=== PATIENT | male | born 1935 | race Caucasian/White ===

== ENCOUNTER 2019-12-18 18:46 | Inpatient (IN) | payer MEDICARE, BC ==
--- NOTE | 2019-12-18 19:14 | ED ---
Skin/Abscess/FB HPI <Josiah Valdez - Last Filed: 12/18/19 21:05> - General Source: patient, EMS, RN notes reviewed Mode of arrival: EMS Limitations: no limitations - History of Present Illness MD complaint: other <Jeffery Hall - Last Filed: 12/18/19 21:10> - General Chief complaint: Skin/Abscess/Foreign Body Stated complaint: Dog bite Time Seen by Provider: 12/18/19 18:46 - History of Present Illness Initial comments: This 84-year-old male who is on blood thinners at this time states she was bit by a family had just prior to arrival he was bit on the right hand to include the right thumb and index finger. He also is been on the right calf proximal th ird posterior lateral aspect. He believes he is up-to-date with tetanus shots he has no loss of function to his upper or lower extremities he was brought in by EMS. He is not ALLERGIC to any antibiotics. He wasn't exactly sure which blood thinner he is on. (Jeffery Hall) - Related Data Allergies Allergy/AdvReac Type Severity Reaction Status Date / Time No Known Allergies Allergy Verified 12/18/19 18:54 Review of Systems ROS Other: All systems not noted in ROS Statement are negative. <Josiah Valdez - Last Filed: 12/18/19 21:05> ROS Other: All systems not noted in ROS Statement are negative. <Jeffery Hall - Last Filed: 12/18/19 21:10> ROS Statement: Those systems with pertinent positive or pertinent negative responses have been documented in the HPI. Past Medical History Past Medical History: Atrial Fibrillation, Diabetes Mellitus History of Any Multi-Drug Resistant Organisms: None Reported Past Surgical History: Cholecystectomy, Coronary Bypass/CABG Past Psychological History: No Psychological Hx Reported Smoking Status: Never smoker Past Alcohol Use History: None Reported Past Drug Use History: None Reported <Jeffery Hall - Last Filed: 12/18/19 21:10> General Exam Limitations: no limitations General appearance: alert, anxious Head exam: Present: atraumatic, normocephalic, normal inspection Eye exam: Present: normal appearance, PERRL, EOMI. Absent: scleral icterus, conjunctival injection, periorbital swelling ENT exam: Present: normal exam, mucous membranes moist Neck exam: Present: normal inspection. Absent: tenderness, meningismus, lymphadenopathy Respiratory exam: Present: normal lung sounds bilaterally. Absent: respiratory distress, wheezes, rales, rhonchi, stridor Cardiovascular Exam: Present: bradycardia, irregular rhythm. Absent: systolic murmur, diastolic murmur, rubs, gallop, clicks GI/Abdominal exam: Present: soft, normal bowel sounds. Absent: distended, tenderness, guarding, rebound, rigid Extremities exam: Present: full ROM, tenderness, normal capillary refill, other (Evidence of multiple dog bites over the right hand proximal right thumb and over the proximal index finger and MCP joint. There is edema and some ecchymosis seen over the second MCP joint Lower extremity demonstrates a another bite approximately 5 cm x 7.5 cm with a portion of tissue missing appro ximately 5 cm x 5 cm ). Absent: pedal edema, joint swelling, calf tenderness Back exam: Present: normal inspection Neurological exam: Present: alert, oriented X3, CN II-XII intact Psychiatric exam: Present: normal affect, normal mood Skin exam: Present: warm, dry, intact, normal color. Absent: rash <Jeffery Hall - Last Filed: 12/18/19 21:10> - General Exam Comments Initial Comments: This is a well-developed well-nourished awake alert oriented 3 male he does demonstrate a [place] Coma Scale of 15 (Jeffery Hall) Course <Jeffery Hall - Last Filed: 12/18/19 21:10> Vital Signs 12/18/19 18:48 Temperature 98.5 F Pulse Rate 60 Respiratory 18 Rate Blood Pressure 151/75 O2 Sat by Pulse 100 Oximetry - Reevaluation(s) Reevaluation #1: 12/18/19 20:22 I did discuss the findings with the patient and his son who is present. Also with Charles Fuchs covering for Dr. Heidi hearn. The wound will be approximated on the leg. Patient will be admitted for IV antibiotics. He will be nothing by mouth after midnight. (Jeffery Hall) Reevaluation #2: 12/18/19 20:32 The patient will be holding his anticoagulant tonight (Jeffery Hall) Reevaluation #3: 12/18/19 20:45 Examination there is evidence of ecchymosis over the third MCP joint 12/18/19 20:58 (Jeffery Hall) Procedures - Laceration Laceration #1 Consent Obtained: verbal consent Indication: laceration Site: lower extremity (Right leg) Size (cm): 6 Description: flap, clean Depth: simple, single layer Sedation/Analgesia: none Anesthetic Used: lidocaine 1% Anesthesia Technique: local infiltration Amount (mls): 5 Pre-repair: irrigated extensively, deep structures intact Type of Sutures: nylon Size of Sutures: 4-0 Number of Sutures: 2 Technique: simple, interrupted Patient Tolerated Procedure: well, no complications <Josiah Valdez - Last Filed: 12/18/19 21:05> Medical Decision Making - Lab Data Result diagrams: 12/18/19 19:10 12/18/19 19:10 <Josiah Valdez - Last Filed: 12/18/19 21:05> - Lab Data Result diagrams: 12/18/19 19:10 12/18/19 19:10 - EKG Data -: EKG Interpreted by Me (Atrial fibrillation rate is 62 QRS 150 QT since QTC 458/464 red bundle-bran) - Radiology Data Radiology results: report reviewed (I did review the imaging and report no acute findings.), image reviewed <Jeffery Hall - Last Filed: 12/18/19 21:10> - Lab Data Lab Results 12/18/19 12/18/19 12/18/19 Range/Units 19:10 19:10 19:10 WBC 6.4 (3.8-10.6) k/uL RBC 4.58 (4.30-5.90) m/uL Hgb 12.4 L (13.0-17.5) gm/dL Hct 40.1 (39.0-53.0) % MCV 87.6 (80.0-100.0) fL MCH 27.0 (25.0-35.0) pg MCHC 30.8 L (31.0-37.0) g/dL RDW 14.9 (11.5-15.5) % Plt Count 203 (150-450) k/uL Neutrophils % 75 % Lymphocytes % 15 % Monocytes % 6 % Eosinophils % 3 % Basophils % 0 % Neutrophils # 4.8 (1.3-7.7) k/uL Lymphocytes # 1.0 (1.0-4.8) k/uL Monocytes # 0.4 (0-1.0) k/uL Eosinophils # 0.2 (0-0.7) k/uL Basophils # 0.0 (0-0.2) k/uL Hypochromasia Slight PT 12.9 H (9.0-12.0) sec INR 1.3 H (<1.2) Sodium 140 (137-145) mmol/L Potassium 4.3 (3.5-5.1) mmol/L Chloride 105 (98-107) mmol/L Carbon Dioxide 27 (22-30) mmol/L Anion Gap 8 mmol/L BUN 22 H (9-20) mg/dL Creatinine 0.91 (0.66-1.25) mg/dL Est GFR (CKD-EPI)AfAm 89 (>60 ml/min/1.73 sqM) Est GFR (CKD-EPI)NonAf 77 (>60 ml/min/1.73 sqM) Glucose 149 H (74-99) mg/dL Calcium 9.7 (8.4-10.2) mg/dL Total Bilirubin 0.5 (0.2-1.3) mg/dL AST 24 (17-59) U/L ALT 13 (4-49) U/L Alkaline Phosphatase 64 (38-126) U/L Creatine Kinase 46 L (55-170) U/L Total Protein 7.5 (6.3-8.2) g/dL Albumin 4.3 (3.5-5.0) g/dL Disposition <Josiah Valdez - Last Filed: 12/18/19 21:05> <Jeffery Hall - Last Filed: 12/18/19 21:10> Clinical Impression: Dog bite of multiple sites of right hand and fingers, Dog bite of calf, Avulsion of soft tissue of right lower leg, Chronic a-fib Disposition: ADMITTED IP TO THIS [facility] Condition: Stable
[2019-12-18 19:26] LABS: Basophils % (A) 0 %; Eosinophils # (A) 0.2 k/uL (0-0.7); Eosinophils % (A) 3 %; HCT 40.1 % (39.0-53.0); HGB 12.4 gm/dL (13.0-17.5); Hypochromasia Slight; Lymphocytes % (A) 15 %; MCHC 30.8 g/dL (31.0-37.0); MCV 87.6 fL (80.0-100.0); Mean Platelet Volume 9.1; Monocytes # (A) 0.4 k/uL (0-1.0); Monocytes % (A) 6 %; Neutrophils # (A) 4.8 k/uL (1.3-7.7); Neutrophils % (A) 75 %; Platelet Count 203 k/uL (150-450); RBC 4.58 m/uL (4.30-5.90); RDW 14.9 % (11.5-15.5); WBC 6.4 k/uL (3.8-10.6)
[2019-12-18 19:33] LABS: INR 1.3 (<1.2); Prothrombin Time 12.9 sec (9.0-12.0)
[2019-12-18 19:37] LABS: Albumin 4.3 g/dL (3.5-5.0); Calcium 9.7 mg/dL (8.4-10.2); Potassium 4.3 mmol/L (3.5-5.1); Total Bilirubin 0.5 mg/dL (0.2-1.3); Total Protein 7.5 g/dL (6.3-8.2)
--- NOTE | 2019-12-18 19:51 | XR ---
EXAMINATION TYPE: XR hand complete RT DATE OF EXAM: 12/18/2019 COMPARISON: NONE HISTORY: Hematoma TECHNIQUE: 3 views FINDINGS: Metacarpals appear intact. I see no fracture nor dislocation. There is mild soft tissue swe lling on the dorsum of the MP joints on the lateral view. IMPRESSION: No fracture seen. 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 Soft tissue swelling.
--- NOTE | 2019-12-18 20:01 | XR ---
EXAMINATION TYPE: XR tibia fibula RT DATE OF EXAM: 12/18/2019 COMPARISON: NONE HISTORY: Dogbite TECHNIQUE: 3 views FINDINGS: I see no fracture nor dislocation. There are vascular surgical clips in the medial lower le g. Knee joint and ankle joint appear intact. IMPRESSION: Previous surgery. No fracture.
[2019-12-18] MEDS ORDERED: PIPERACILLIN-TAZOBACTAM 3.375 GM in SODIUM CHLORIDE 0.9% 100 ML IVPB STA (20:21)
[2019-12-18] MEDS ORDERED: ONDANSETRON 4 MG/2 ML VIAL IVP PRN (20:24)
[2019-12-18] MEDS ORDERED: NALOXONE 0.4 MG/ML 1 ML VIAL IV PRN (20:24)
[2019-12-18] MEDS ORDERED: LIDOCAINE 1% INJ 10MG/ML (20 ML MDV) SQ ONE (20:31)
[2019-12-18] MEDS: SODIUM CHLORIDE 0.9% 1,000 ML IV SCH (21:08)
[2019-12-18 21:56] LABS: Glucose,Whole Blood 126 mg/dL (75-99)
[2019-12-18] MEDS: HYDROmorphone 0.5 MG/0.5 ML SYRINGE IVP PRN (23:58)
[2019-12-19 03:40] LABS: HCT 36.5 % (39.0-53.0); HGB 11.1 gm/dL (13.0-17.5); Hypochromasia Marked; MCH 27.2 pg (25.0-35.0); MCHC 30.3 g/dL (31.0-37.0); Mean Platelet Volume 9.9; Platelet Count 197 k/uL (150-450); RBC 4.06 m/uL (4.30-5.90); RDW 14.6 % (11.5-15.5); WBC 8.6 k/uL (3.8-10.6)
[2019-12-19] MEDS: SODIUM CHLORIDE 0.9% 1,000 ML IV SCH ×3 (06:00→20:42)
[2019-12-19] MEDS: HYDROmorphone 0.5 MG/0.5 ML SYRINGE IVP PRN ×2 (06:01→10:46)
[2019-12-19 06:07] LABS: Glucose,Whole Blood 164 mg/dL (75-99)
[2019-12-19] MEDS ORDERED: ATORVASTATIN 20 MG TAB PO SCH (11:15)
--- NOTE | 2019-12-19 11:28 | P.HPOR ---
<Steve Fuchs - Last Filed: 12/19/19 11:19> History of Present Illness H&P Date: 12/19/19 Chief Complaint: Status post dog bite to the right hand and right lower extremity Patient is a pleasant 84-year-old male who is seen today at the bedside for further evaluation in regards to his right hand and right lower extremity after sustaining multiple bites by a family dog. He continues to have some pain at the right calf. He has been able to ambulate to the restroom on the right lower extremity. He presents the emergency department for further evaluation. We will contact him as regard. They were able to clean up the wound sites at approximate tissues and apply bandage to the wound sites. Patient states at the bedside his pain has been adequately controlled with pain medication. He is currently on IV antibiotics. Patient does not locally but was in the area with his family. Patient does have a history of atrial fibrillation, diabetes mellitus, and history of coronary bypass. Patient is currently on Xarelto for anticoagulation. Past Medical History Past Medical History: Atrial Fibrillation, COPD, Diabetes Mellitus, Myocardial Infarction ([place]) Last Myocardial Infarction Date:: 1992 History of Any Multi-Drug Resistant Organisms: None Reported Past Surgical History: Cholecystectomy, Coronary Bypass/CABG Additional Past Surgical History / Comment(s): 7 vessel bypass 1992 Past Anesthesia/Blood Transfusion Reactions: No Reported Reaction Past Psychological History: No Psychological Hx Reported Smoking Status: Former smoker Past Alcohol Use History: None Reported Past Drug Use History: None Reported - Past Family History Father Family Medical History: CVA/TIA Mother Additional Family Medical History / Comment(s): enlarged heart Daughter(s) Family Medical History: No Reported History Son(s) Family Medical History: Asthma, Cancer Medications and Allergies Home Medications Medication Instructions Recorded Confirmed Type Furosemide [Lasix] 40 mg PO DAILY 12/18/19 12/18/19 History Insulin Aspart [NovoLOG Flexpen] 13 units SQ TID 12/18/19 12/18/19 History Insulin Detemir (Levemir) [Levemir] 40 unit SQ DAILY 12/18/19 12/18/19 History Insulin Detemir (Levemir) [Levemir] 45 unit SQ HS 12/18/19 12/18/19 History Omeprazole 20 mg PO DAILY 12/18/19 12/18/19 History Rivaroxaban [Xarelto] 20 mg PO W/SUPPER 12/18/19 12/18/19 History Simvastatin 40 mg PO DAILY 12/18/19 12/18/19 History Tiotropium Br/Olodaterol HCl 2 spray INHALATION RT-DAILY PRN 12/18/19 12/18/19 History [Stiolto Respimat Inhal [place]] atenoloL [Atenolol] 25 mg PO DAILY 12/18/19 12/18/19 History metFORMIN HCL [Glucophage] 500 mg PO BID 12/18/19 12/18/19 History Allergies Allergy/AdvReac Type Severity Reaction Status Date / Time No Known Allergies Allergy Verified 12/18/19 21:33 Physical Examination Physical Exam: Patient is awake, alert, and oriented 3 Vital signs stable Good chest excursion with deep inspiration and expiration Evidence of puncture wounds over the right thenar portion of the hand and at the base of the right posterior index finger Right hand is soft to palpation Wounds at the right hand are soft No drainage from the wound sites No significant erythema around the wound sites There is evidence of bruising over the right hand. Evidence of a large wound measuring approximately 7.5 cm x 5 cm over the lateral mid right calf which appears superficial with a large piece of superficial skin missing Evidence of 2 sutures at the wound site of the left lower extremity to help approximate tissues Neurovascular intact right upper extremity Neurovascular intact right lower extremity Patient is able to perform some active range of motion of the right ankle Patient able to perform active range of motion right upper extremity without difficulty Results Pertinent studies: X-rays of the right tibia and fibula taken on 12/18/2019: No evidence of fracture right lower extremity; clips from previous surgical intervention; no evidence of fracture dislocation of the right ankle X-rays of the right-hand taken on 12/18/2019: No evidence of fracture the right hand so an osteoarthritic changes of the base of the right thumb some soft tissue swelling - Labs Labs: Abnormal Lab Results - Last 24 Hours (Table) 12/18/19 12/18/19 12/18/19 Range/Units 19:10 19:10 19:10 RBC (4.30-5.90) m/uL Hgb 12.4 L (13.0-17.5) gm/dL Hct (39.0-53.0) % MCHC 30.8 L (31.0-37.0) g/dL PT 12.9 H (9.0-12.0) sec INR 1.3 H (<1.2) BUN 22 H (9-20) mg/dL Glucose 149 H (74-99) mg/dL POC Glucose (mg/dL) (75-99) mg/dL Creatine Kinase 46 L (55-170) U/L 12/18/19 12/19/19 12/19/19 Range/Units 21:54 03:23 06:05 RBC 4.06 L (4.30-5.90) m/uL Hgb 11.1 L (13.0-17.5) gm/dL Hct 36.5 L (39.0-53.0) % MCHC 30.3 L (31.0-37.0) g/dL PT (9.0-12.0) sec INR (<1.2) BUN (9-20) mg/dL Glucose (74-99) mg/dL POC Glucose (mg/dL) 126 H 164 H (75-99) mg/dL Creatine Kinase (55-170) U/L H & H 12/18/19 12/19/19 Range/Units 19:10 03:23 Hgb 12.4 L 11.1 L (13.0-17.5) gm/dL Hct 40.1 36.5 L (39.0-53.0) % Coagulation 12/18/19 Range/Units 19:10 INR 1.3 H (<1.2) Result Diagrams: 12/19/19 03:23 12/18/19 19:10 Assessment and Plan Assessment: Assessment: Status post dog bite to the right hand and right calf Puncture wounds at the right thenar and right index finger Large wound of the right mid lateral calf of the right lower extremity History of atrial fibrillation Diabetes mellitus History of coronary bypass Currently on anticoagulation (1) Diabetes mellitus Current Visit: Yes Status: Acute Code(s): E11.9 - TYPE 2 DIABETES MELLITUS WITHOUT COMPLICATIONS SNOMED Code(s): 32415081 (2) History of coronary artery bypass graft Current Visit: Yes Status: Acute Code(s): Z95.1 - PRESENCE OF AORTOCORONARY BYPASS GRAFT SNOMED Code(s): 570241154 (3) Current use of prison anticoagulation Current Visit: Yes Status: Acute Code(s): 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 SNOMED Code(s): 320856257 (4) Chronic a-fib Current Visit: Yes Status: Acute Code(s): I48.20 - CHRONIC ATRIAL FIBRILLATION, UNSPECIFIED SNOMED Code(s): 921833112 (5) Dog bite of calf Current Visit: Yes Status: Acute Code(s): S81.859A - OPEN BITE, UNSPECIFIED LOWER LEG, INITIAL ENCOUNTER; W54.0XXA - BITTEN BY DOG, INITIAL ENCOUNTER SNOMED Code(s): 968430800 (6) Dog bite of multiple sites of right hand and fingers Current Visit: Yes Status: Acute Code(s): S61.451A - OPEN BITE OF RIGHT HAND, INITIAL ENCOUNTER; S61.259A - OPEN BITE OF UNSP FINGER WITHOUT DAMAGE TO NAIL, INIT ENCNTR; W54.0XXA - BITTEN BY DOG, INITIAL ENCOUNTER SNOMED Code(s): 844082319 Plan: Plan: 1. Dressings were removed at the right hand and right lower extremity during physical examination. No active drainage from the puncture wounds of the right hand. No evidence of erythema at the wound sites. There is some bruising. Dressing is reapplied with the right hand Adaptic, 4 x 4's, and Kerlix. Patient may use his right upper extremity tolerance while avoiding excessive activity with his right hand. Wound at the right mid calf was irrigated. Tissues have increased again approximated with suture. Wound seems to be superficial. We are not currently complaining for any emergent surgical intervention of his right lower extremity. We did discuss continued with wound care. We'll plan for consultation with Denisha Murphy in wound care. Dressing is reapplied with nonstick Telfa, 4 x 4, ABD, Kerlix, and Matthew wrap. He may weight-bear to tolerance on the right lower extremity. We are not currently planned for surgical intervention is right-hand or right lower extremity. 2. We'll continue with IV antibiotics with Zosyn. 3. Continue pain control with IV Dilaudid. We will also add Ultram 50 mg 1-2 tabs every 6 hours as needed for pain. 4. Consultation has been placed with medicine for treatment evaluation of his other medical diagnoses Time with Patient: Greater than 30 (Including obtaining history, physical examination, reviewing of imaging, and dictation.) <Addie Gordon - Last Filed: 12/19/19 11:29> Physical Examination Osteopathic Statement: *. No significant issues noted on an osteopathic structural exam other than those noted in the History and Physical/Consult. Results - Labs Labs: Abnormal Lab Results - Last 24 Hours (Table) 12/18/19 12/18/19 12/18/19 Range/Units 19:10 19:10 19:10 RBC (4.30-5.90) m/uL Hgb 12.4 L (13.0-17.5) gm/dL Hct (39.0-53.0) % MCHC 30.8 L (31.0-37.0) g/dL PT 12.9 H (9.0-12.0) sec INR 1.3 H (<1.2) BUN 22 H (9-20) mg/dL Glucose 149 H (74-99) mg/dL POC Glucose (mg/dL) (75-99) mg/dL Creatine Kinase 46 L (55-170) U/L 12/18/19 12/19/19 12/19/19 Range/Units 21:54 03:23 06:05 RBC 4.06 L (4.30-5.90) m/uL Hgb 11.1 L (13.0-17.5) gm/dL Hct 36.5 L (39.0-53.0) % MCHC 30.3 L (31.0-37.0) g/dL PT (9.0-12.0) sec INR (<1.2) BUN (9-20) mg/dL Glucose (74-99) mg/dL POC Glucose (mg/dL) 126 H 164 H (75-99) mg/dL Creatine Kinase (55-170) U/L H & H 12/18/19 12/19/19 Range/Units 19:10 03:23 Hgb 12.4 L 11.1 L (13.0-17.5) gm/dL Hct 40.1 36.5 L (39.0-53.0) % Coagulation 12/18/19 Range/Units 19:10 INR 1.3 H (<1.2) Result Diagrams: 12/19/19 03:23 12/18/19 19:10 Assessment and Plan Plan: Patient is seen and examined today at bedside. I agree with the above dictation. He'll continue local wound care and antibiotics for now. Wound care will be seeing him as well.
[2019-12-19 11:33] LABS: Glucose,Whole Blood 139 mg/dL (75-99)
[2019-12-19] MEDS: PIPERACILLIN-TAZOBACTAM 3.375 GM in SODIUM CHLORIDE 0.9% 100 ML IVPB SCH ×2 (13:02→20:42)
[2019-12-19] MEDS: INSULIN ASPART (NovoLOG) 100 UNIT/ML VIAL SQ SCH ×2 (13:34→17:25)
[2019-12-19] MEDS: traMADol 50 MG TAB PO SCH ×4 (14:00→23:19)
[2019-12-19] MEDS: atenoloL 25 MG TAB PO SCH (15:57)
[2019-12-19] MEDS: INSULIN DETEMIR (LEVEMIR) 100 UNIT/ML SYR SQ SCH ×2 (15:58→20:41)
[2019-12-19] MEDS: FUROSEMIDE 40 MG TAB PO SCH (15:58)
[2019-12-19 16:37] LABS: Glucose,Whole Blood 231 mg/dL (75-99)
[2019-12-19] MEDS: RIVAROXABAN 20 MG TAB PO SCH (17:24)
[2019-12-19] MEDS: PANTOPRAZOLE 40 MG TABLET PO SCH (17:25)
[2019-12-19 19:48] LABS: Glucose,Whole Blood 134 mg/dL (75-99)
[2019-12-19] MEDS: metFORMIN 500 MG TAB PO SCH (20:41)
[2019-12-19] MEDS: ATORVASTATIN 20 MG TAB PO SCH (20:41)
[2019-12-19] MEDS ORDERED: traMADol 50 MG TAB PO STA (23:15)
[2019-12-20 05:26] LABS: Glucose,Whole Blood 154 mg/dL (75-99)
[2019-12-20 05:56] LABS: Basophils % (A) 0 %; Eosinophils # (A) 0.1 k/uL (0-0.7); Eosinophils % (A) 1 %; HCT 33.5 % (39.0-53.0); HGB 10.2 gm/dL (13.0-17.5); Hypochromasia Marked; Lymphocytes # (A) 0.9 k/uL (1.0-4.8); Lymphocytes % (A) 12 %; MCH 27.2 pg (25.0-35.0); MCHC 30.3 g/dL (31.0-37.0); MCV 89.8 fL (80.0-100.0); Monocytes # (A) 0.5 k/uL (0-1.0); Monocytes % (A) 6 %; Neutrophils # (A) 6.2 k/uL (1.3-7.7); Neutrophils % (A) 79 %; Platelet Count 183 k/uL (150-450); RBC 3.73 m/uL (4.30-5.90); WBC 7.8 k/uL (3.8-10.6)
[2019-12-20] MEDS: traMADol 50 MG TAB PO SCH ×3 (08:13→18:45)
[2019-12-20] MEDS: atenoloL 25 MG TAB PO SCH (08:13)
[2019-12-20] MEDS: FUROSEMIDE 40 MG TAB PO SCH (08:13)
[2019-12-20] MEDS: PANTOPRAZOLE 40 MG TABLET PO SCH (08:14)
[2019-12-20] MEDS: INSULIN DETEMIR (LEVEMIR) 100 UNIT/ML SYR SQ SCH ×2 (08:14→21:09)
[2019-12-20] MEDS: INSULIN ASPART (NovoLOG) 100 UNIT/ML VIAL SQ SCH ×3 (08:14→16:47)
[2019-12-20] MEDS: PIPERACILLIN-TAZOBACTAM 3.375 GM in SODIUM CHLORIDE 0.9% 100 ML IVPB SCH (10:10)
[2019-12-20 11:33] LABS: Glucose,Whole Blood 131 mg/dL (75-99)
--- NOTE | 2019-12-20 12:25 | XR ---
EXAMINATION TYPE: XR chest 1V portable DATE OF EXAM: 12/20/2019 Comparison: None Clinical History: 84-year-old male shortness of breath, difficulty breathing Findings: Median sternotomy wires and post-CABG clips in the mediastinum. Heart mildly enlarged. Diffuse inters titial and perihilar opacity. Possible small right effusion. Impression: Correlate for CHF with mild interstitial pulmonary edema. Suspect small right effusion.
[2019-12-20] MEDS: SODIUM CHLORIDE 0.9% 1,000 ML IV SCH (12:38)
--- NOTE | 2019-12-20 12:47 | P.PN ---
Progress Note - Text Progress Note Date: 12/20/19 Orthopedics: History of present illness: Patient is a pleasant 84-year-old male who is seen today at the bedside for follow-up evaluation in regards to his right hand and right lower extremity after sustaining multiple bites by a family dog. He continues to have some pain at the right calf. He continues to have some drainage from the wound site and nursing states the dressing had to be changed approximately 4 times since it was applied yesterday. He has been able to ambulate to the restroom on the right lower extremity. He is not expressing any significant pain at the wound sites of the right hand. Overall, he feels his pain has been medically controlled. Patient has been discussed in detail with Dr. Hagan this morning. He's plan to keep the patient in the hospital until at least tomorrow, 11/19/2019. He did order a chest x-ray for shortness of breath and difficulty breathing. Patient states he does have some difficulty with breathing while lying down. He is currently on IV antibiotics which have been changed to Unasyn per Dr. Hagan. Patient does not locally but was in the area with his family. Patient does have a history of atrial fibrillation, diabetes mellitus, and history of coronary bypass. Patient is currently on Xarelto for anticoagulation. Physical Exam: Patient is awake, alert, and oriented 3 Vital signs stable Good chest excursion with deep inspiration and expiration Dressings of the right hand and right lower extremity are removed during physical examination Dressing is reapplied at the right hand with nonstick Telfa, 4 x 4, and stretch wrap Dressing is reapplied at the right lower extremity with nonadherent, 4 x 4, EBD, stretch wrap, and Matthew wrap Evidence of a puncture wound over the right thenar portion of the hand and multiple at the base of the right posterior index finger No active drainage from the multiple puncture wound sites at the base of the right index finger and at the medial proximal index finger Puncture wound at the thenar portion of the right hand has evidence of some bloody drainage without obvious sign of infection Right hand is soft to palpation Wounds at the right hand are soft No significant erythema around the wound sites There is evidence of bruising over the right hand. Evidence of a large wound measuring approximately 7.5 cm x 5 cm over the lateral mid right calf which appears superficial with a large piece of superficial skin missing Evidence of 2 sutures at the wound site of the right lower extremity to help approximate tissues Evidence of one small area of drainage over the wound site of the right lower extremity Neurovascular intact right upper extremity Neurovascular intact right lower extremity Patient is able to perform some active range of motion of the right ankle Patient able to perform active range of motion right upper extremity without difficulty Pertinent studies: X-rays of the right tibia and fibula taken on 12/18/2019: No evidence of fracture right lower extremity; clips from previous surgical intervention; no evidence of fracture dislocation of the right ankle X-rays of the right-hand taken on 12/18/2019: No evidence of fracture the right hand so an osteoarthritic changes of the base of the right thumb some soft tissue swelling Assessment: Status post dog bite to the right hand and right calf Puncture wounds at the right thenar and right index finger Large wound of the right mid lateral calf of the right lower extremity History of atrial fibrillation Diabetes mellitus History of coronary bypass Currently on anticoagulation Shortness of breath and difficulty of breathing Plan: 1. Dressings were removed at the right hand and right lower extremity during physical examination. No active drainage from the puncture wounds of the base of the right index finger and medial portion of the proximal right index finger. There is some drainage this morning at the thenar wound puncture site. No evidence of erythema at the wound sites. There is some bruising. Dressing is reapplied with the right hand nonstick Telfa, 4 x 4's, and Kerlix. Patient may use his right upper extremity tolerance while avoiding excessive activity with his right hand. Wound at the right mid calf was irrigated. Tissues continue to be approximated with suture. There continues to be an open area of superficial wound with 1 area of drainage. We would plan to continue conservative treatment with wound care. We are not currently planning for any emergent surgical intervention of his right lower extremity. We did discuss continuing with wound care during his admission to the hospital. Consultation has been placed for Denisha Murphy in wound care. Dressing is reapplied with nonadherent dressing, 4 x 4, ABD, stretch wrap, and Matthew wrap. He may weight-bear to tolerance on the right lower extremity. We are not currently planned for surgical intervention is right-hand or right lower extremity. 2. We'll continue with IV antibiotics with Unasyn as prescribed by Dr. Hagan 3. Continue pain control with IV Dilaudid. We will also add Ultram 50 mg 1-2 tabs every 6 hours as needed for pain. 4. Patient will continue be seen and examined by Dr. Hagan and medicine for management of his other medical diagnoses including shortness of breath and difficulty breathing 5. We discussed we will also have case management plan to set up wound care in the outpatient setting location closer to his home 6. If the patient continues to improve and he is cleared by medicine, we will plan for discharge home as early as tomorrow, 12/21/2019. We will plan to have him follow up with Steve Fuchs PA-C or Dr. Ba Gordon at [facility] in approximately 1 week for further evaluation
--- NOTE | 2019-12-20 13:46 | P.CONS ---
History of Present Illness - Reason for Consult Consult date: 12/20/19 Wound care - History of Present Illness This is an 84-year-old patient being seen by wound care for a dog bite to the right calf and right hand. Patient is out of town and was here vacationing with family when he sustained a dog bite. The dog bit his right calf without pulling motion creating a flap that was sutured in place. Nursing staff stated that the ulceration continues to bleed and go through the dressings. patient is on eliquis. Patient's past medical history is significant for diabetes. Review of Systems Review Of Systems: Constitutional: No fever, no chills, no night sweats. No weight change. No weakness, fatigue or lethargy. No daytime sleepiness. Integumentary:reports wounds, no lesions. No rash or pruritus. No unusual bruising. No change in hair or nails. Past Medical History Past Medical History: Atrial Fibrillation, COPD, Diabetes Mellitus, Myocardial Infarction ([place]) Last Myocardial Infarction Date:: 1992 History of Any Multi-Drug Resistant Organisms: None Reported Past Surgical History: Cholecystectomy, Coronary Bypass/CABG Additional Past Surgical History / Comment(s): 7 vessel bypass 1992 Past Anesthesia/Blood Transfusion Reactions: No Reported Reaction Past Psychological History: No Psychological Hx Reported Smoking Status: Former smoker Past Alcohol Use History: None Reported Past Drug Use History: None Reported - Past Family History Father Family Medical History: CVA/TIA Mother Additional Family Medical History / Comment(s): enlarged heart Daughter(s) Family Medical History: No Reported History Son(s) Family Medical History: Asthma, Cancer Medications and Allergies Home Medications Medication Instructions Recorded Confirmed Type Furosemide [Lasix] 40 mg PO DAILY 12/18/19 12/18/19 History Insulin Aspart [NovoLOG Flexpen] 13 units SQ TID 12/18/19 12/18/19 History Insulin Detemir (Levemir) [Levemir] 40 unit SQ DAILY 12/18/19 12/18/19 History Insulin Detemir (Levemir) [Levemir] 45 unit SQ HS 12/18/19 12/18/19 History Omeprazole 20 mg PO DAILY 12/18/19 12/18/19 History Rivaroxaban [Xarelto] 20 mg PO W/SUPPER 12/18/19 12/18/19 History Simvastatin 40 mg PO DAILY 12/18/19 12/18/19 History Tiotropium Br/Olodaterol HCl 2 spray INHALATION RT-DAILY PRN 12/18/19 12/18/19 History [Stiolto Respimat Inhal Superior] atenoloL [Atenolol] 25 mg PO DAILY 12/18/19 12/18/19 History metFORMIN HCL [Glucophage] 500 mg PO BID 12/18/19 12/18/19 History Allergies Allergy/AdvReac Type Severity Reaction Status Date / Time No Known Allergies Allergy Verified 12/18/19 21:33 Physical Exam Vitals: Vital Signs Temp Pulse Resp BP Pulse Ox 12/20/19 08:59 98.2 F 77 16 143/75 91 L 12/20/19 02:42 72 20 12/20/19 02:20 98.1 F 72 20 134/64 92 L 12/19/19 19:25 99.0 F 77 16 126/59 93 L 12/19/19 15:00 98.8 F 80 16 144/73 96 Intake and Output 12/19/19 12/20/19 12/20/19 22:59 06:59 14:59 Intake Total 100 Output Total 240 240 Balance -240 -240 100 Intake: Other 100 Output: Urine 240 240 Other: Voiding Method Toilet Toilet # Voids 1 1 Physical exam: General Appearance: Alert, cooperative, no distress, appears stated age. Skin: Right calf ulceration shows a flap with sutures and a large area of ulceration with fatty layer exposure. Moderate sanguinous drainage. Right hand puncture ulcerations with minimal drainage fat layer exposure. all other Skin color, texture, tugor normal, no rashes or lesions. Neurologic: Alert oriented x3 Results CBC & Chem 7: 12/20/19 05:19 12/18/19 19:10 Labs: Abnormal Lab Results - Last 24 Hours (Table) 12/19/19 12/19/19 12/20/19 Range/Units 16:33 19:46 05:19 RBC 3.73 L (4.30-5.90) m/uL Hgb 10.2 L (13.0-17.5) gm/dL Hct 33.5 L (39.0-53.0) % MCHC 30.3 L (31.0-37.0) g/dL Lymphocytes # 0.9 L (1.0-4.8) k/uL POC Glucose (mg/dL) 231 H 134 H (75-99) mg/dL 12/20/19 12/20/19 Range/Units 05:24 11:32 RBC (4.30-5.90) m/uL Hgb (13.0-17.5) gm/dL Hct (39.0-53.0) % MCHC (31.0-37.0) g/dL Lymphocytes # (1.0-4.8) k/uL POC Glucose (mg/dL) 154 H 131 H (75-99) mg/dL Microbiology - Last 24 Hours (Table) 12/18/19 19:10 Blood Culture - Preliminary Blood No Growth after 24 hours Assessment and Plan (1) Diabetes with skin ulcer Current Visit: Yes Status: Acute Code(s): E11.622 - TYPE 2 DIABETES MELLITUS WITH OTHER SKIN ULCER; L98.499 - NON-PRESSURE CHRONIC ULCER OF SKIN OF SITES W UNSP SEVERITY SNOMED Code(s): 48422847 (2) Avulsion of soft tissue of right lower leg Current Visit: Yes Status: Acute Code(s): S81.801A - UNSPECIFIED OPEN WOUND, RIGHT LOWER LEG, INITIAL ENCOUNTER SNOMED Code(s): 870662131 (3) Dog bite of calf Current Visit: Yes Status: Acute Code(s): S81.859A - OPEN BITE, UNSPECIFIED LOWER LEG, INITIAL ENCOUNTER; W54.0XXA - BITTEN BY DOG, INITIAL ENCOUNTER SNOMED Code(s): 414178891 (4) Dog bite of multiple sites of right hand and fingers Current Visit: Yes Status: Acute Code(s): S61.451A - OPEN BITE OF RIGHT HAND, INITIAL ENCOUNTER; S61.259A - OPEN BITE OF UNSP FINGER WITHOUT DAMAGE TO NAIL, INIT ENCNTR; W54.0XXA - BITTEN BY DOG, INITIAL ENCOUNTER SNOMED Code(s): 199518059 Plan: Apply absorptive silver to the site. ABDs, and rolled gauze, coban and secure with Matthew wrap. Change dressings Friday and Friday. Patient would benefit from utilization of wound care. More than likely the sutures skin will become necrosis and need further debridement. Patient is agreeable for wound care therapy closer to his home. Thank you, for the consultation any questions contact the wound care center DNP note has been reviewed and discussed with Dr. White and the impression and plan of care has been directed as dictated.
[2019-12-20] MEDS ORDERED: IPRATROPIUM-ALBUTEROL 3 ML NEB INHALATION PRN (13:59)
[2019-12-20] MEDS: SYMBICORT 160-4.5 MCG INHALER INHALATION SCH ×2 (14:46→19:25)
[2019-12-20] MEDS: IPRATROPIUM-ALBUTEROL 3 ML NEB INHALATION SCH ×2 (15:20→19:25)
[2019-12-20] MEDS: FUROSEMIDE 10 MG/ML 4 ML VIAL IV SCH ×2 (15:31→22:25)
[2019-12-20 16:43] LABS: Glucose,Whole Blood 78 mg/dL (75-99)
[2019-12-20] MEDS: RIVAROXABAN 20 MG TAB PO SCH (18:33)
[2019-12-20] MEDS: metFORMIN 500 MG TAB PO SCH (20:22)
[2019-12-20] MEDS: ATORVASTATIN 20 MG TAB PO SCH (20:22)
[2019-12-20] MEDS: AMPICILLIN-SULBACTAM 3 GM in SODIUM CHLORIDE 0.9% 100 ML IVPB SCH (20:23)
[2019-12-20 20:27] LABS: Glucose,Whole Blood 146 mg/dL (75-99)
[2019-12-21] MEDS: traMADol 50 MG TAB PO SCH ×5 (00:14→21:15)
[2019-12-21] MEDS: SODIUM CHLORIDE 0.9% 1,000 ML IV SCH ×2 (01:15→07:37)
--- NOTE | 2019-12-21 02:25 | CONS ---
CONSULTATION REASON FOR CONSULTATION: Advice regarding diabetes and other medical issues requested by Orthopedic Surgery. HISTORY OF PRESENT ILLNESS: This 84-year-old gentleman with a past medical history of atrial fibrillation, COPD, diabetes, myocardial infarction being followed by primary physician in [place] was vacationing in the area. The patient apparently had been bitten by a dog and flap was created in the right leg and there was also a bite in the hands. Orthopedic Surgery saw the patient and they noted puncture wounds of the right thenar and right index finger, large wound on the right mid and lateral calf was also noted. The blood sugars were monitored. There is no history of any fever, rigors. No history of headache, loss of consciousness or seizures. The dressing on the right calf was because of because of exudation. No chest pain. No palpitations. No fever. No shortness of breath. PAST MEDICAL HISTORY: History of atrial fibrillation, COPD, diabetes mellitus, myocardial infarction. MEDICATIONS: Home medications are: 1. Glucophage 500 mg p.o. b.i.d. 2. Atenolol 25 mg p.o. daily. 3. Stiolto 2 sprays daily. 4. Simvastatin 40 mg daily. 5. Xarelto 20 mg with supper. 6. Omeprazole 20 mg daily. 7. Levemir 40 units subcu daily and 45 units subcu at bedtime. 8. Insulin 13 units a.c. t.i.d. 9. Lasix 40 mg daily. ALLERGIES: None. FAMILY HISTORY: History of CVA, TIA, enlarged heart. SOCIAL HISTORY: No history of smoking. No history of alcohol intake. REVIEW OF SYSTEMS: ENT: Diminished hearing and diminished vision. CARDIOVASCULAR SYSTEM: As mentioned earlier. RESPIRATORY SYSTEM: As mentioned earlier. GI: No nausea. : No dysuria. NERVOUS SYSTEM: No numbness or weakness. ALLERGY/IMMUNOLOGY: No asthma or hayfever. MUSCULOSKELETAL: As mentioned earlier. HEMATOLOGY/ONCOLOGY: No history of anemia. ENDOCRINE As mentioned earlier. CONSTITUTIONAL: As mentioned earlier. DERMATOLOGY: Negative. RHEUMATOLOGY: Negative. PSYCHIATRY: As mentioned earlier. PHYSICAL EXAMINATION: Patient is alert and oriented x3. Pulse 77, blood pressure 143/75, respirations 16, temperature 98.2, pulse ox 91% on room air. HEENT: Conjunctivae normal. Oral mucosa moist. NECK: No jugular venous distention. No carotid bruit. No lymph node enlargement. CARDIOVASCULAR: S1, S2 muffled. No S3, S4. RESPIRATORY: Breath sounds diminished at the bases. A few scattered rhonchi and crackles. ABDOMEN: Soft, obese, otherwise nontender. No mass palpable. LEGS: Right leg wound with flap present. NERVOUS SYSTEM: No focal deficits. Right hand puncture wounds present otherwise skin as mentioned earlier. JOINTS: No active deforming arthropathy. LABS: Labs are at this time show WBC 6.4, hemoglobin is 12.4 and 10.2. INR 1.3. Glucose 127. Creatine kinase 46. ASSESSMENT: 1. Status post dog bite with a flap on the right lower leg and as well as puncture wounds on the right upper limb, right hand. 2. Diabetes mellitus type 2. 3. Atrial fibrillation, chronic. 4. Right bundle branch block on the EKG. 5. History of chronic obstructive pulmonary disease. 6. History of myocardial infarction. 7. History of coronary artery disease, coronary artery bypass grafting. 8. Remote history of nicotine dependence. 9. Obesity, body mass index of 34.7. RECOMMENDATIONS AND DISCUSSION: This 84-year-old gentleman who presented with multiple complex medical issues, we will monitor the patient closely. Continue the current medications, continue symptomatic treatment. Will follow closely with Orthopedic Surgery. Otherwise, local dressing, IV antibiotics to Unasyn. Monitor blood sugars closely. A chest x-ray which was done also reviewed personally showed some evidence of CHF. I recommend some Lasix at this time and optimize the bronchodilator treatment. Monitor blood sugars closely. Prognosis guarded because of multiple complex medical issues. Further recommendations to follow. Thank you Dr. Gordon, for letting us participate in the care of this patient. MMODL / IJN: [id number] / MIGUEL A
[2019-12-21 06:20] LABS: Basophils % (A) 0 %; Eosinophils % (A) 0 %; HCT 34.4 % (39.0-53.0); HGB 10.4 gm/dL (13.0-17.5); Hypochromasia Marked; Lymphocytes # (A) 0.9 k/uL (1.0-4.8); Lymphocytes % (A) 12 %; MCH 27.3 pg (25.0-35.0); MCHC 30.3 g/dL (31.0-37.0); MCV 90.1 fL (80.0-100.0); Mean Platelet Volume 8.8; Monocytes # (A) 0.5 k/uL (0-1.0); Monocytes % (A) 7 %; Neutrophils % (A) 78 %; Platelet Count 191 k/uL (150-450); RBC 3.82 m/uL (4.30-5.90); WBC 7.7 k/uL (3.8-10.6)
[2019-12-21 06:25] LABS: INR 1.2 (<1.2); Prothrombin Time 11.9 sec (9.0-12.0)
[2019-12-21 06:42] LABS: Glucose,Whole Blood 109 mg/dL (75-99)
[2019-12-21 06:52] LABS: African American GFR (CKD) >90 (>60 ml/min/1.73 sqM); Anion Gap 6 mmol/L; Blood Urea Nitrogen 14 mg/dL (9-20); Calcium 8.7 mg/dL (8.4-10.2); Carbon Dioxide 30 mmol/L (22-30); Chloride 102 mmol/L (98-107); Glucose 111 mg/dL (74-99); Non-African American GFR(CKD) 81 (>60 ml/min/1.73 sqM); Potassium 4.5 mmol/L (3.5-5.1); Sodium 138 mmol/L (137-145)
[2019-12-21] MEDS: INSULIN ASPART (NovoLOG) 100 UNIT/ML VIAL SQ SCH ×3 (07:19→17:15)
[2019-12-21] MEDS: metFORMIN 500 MG TAB PO SCH ×2 (07:36→21:13)
[2019-12-21] MEDS: FUROSEMIDE 10 MG/ML 4 ML VIAL IV SCH ×2 (07:36→21:13)
[2019-12-21] MEDS: AMPICILLIN-SULBACTAM 3 GM in SODIUM CHLORIDE 0.9% 100 ML IVPB SCH ×2 (07:36→21:13)
[2019-12-21] MEDS: atenoloL 25 MG TAB PO SCH (07:37)
[2019-12-21] MEDS: PANTOPRAZOLE 40 MG TABLET PO SCH (07:37)
[2019-12-21] MEDS: SYMBICORT 160-4.5 MCG INHALER INHALATION SCH ×2 (09:04→20:38)
[2019-12-21] MEDS: IPRATROPIUM-ALBUTEROL 3 ML NEB INHALATION SCH ×4 (09:04→20:39)
[2019-12-21] MEDS: INSULIN DETEMIR (LEVEMIR) 100 UNIT/ML SYR SQ SCH ×2 (10:39→21:13)
[2019-12-21 11:36] LABS: Glucose,Whole Blood 122 mg/dL (75-99)
--- NOTE | 2019-12-21 12:44 | P.PN ---
Progress Note - Text Progress Note Date: 12/21/19 Orthopedics: History of present illness: Patient is a pleasant 84-year-old male who is seen today at the bedside for follow-up evaluation in regards to his right hand and right lower extremity after sustaining multiple bites by a family dog. He continues to have some pain at the right calf. He has been seen by wound care who is now managing his dressings at the right hand and right lower extremity. They're planning for dressing changes on Friday, Friday, and Fridays. He has been able to ambulate to the restroom on the right lower extremity. He is not. Seeing any significant pain at the wound sites of the right hand. Overall, he feels his pain has been medically controlled. Patient has had some difficulty with his oxygen levels. Nursing states did have some decrease in oxygen saturation. He is in place on O2 nasal cannula. Chest x-ray was ordered by Dr. Hagan medicine yesterday. Has been transferred from observation inpatient status. We will also plan for transfer of his status from orthopedics to medicine. EKG was also ordered this morning. He is currently on IV antibiotics which have been changed to Unasyn per Dr. Hagan. Patient does not locally but was in the area with his family. Discharge planning is current ly being made for the patient to follow-up at the [facility] outpatient for further evaluation of his dog bite wounds since he does not live locally. Case management is also setting up wound care and home care in the outpatient setting. Patient does have a history of atrial fibrillation, diabetes mellitus, and history of coronary bypass. Patient is currently on Xarelto for anticoagulation. Physical Exam: Patient is awake, alert, and oriented 3 Vital signs stable Adequate chest excursion with deep inspiration and expiration; O2 nasal cannula intact Dressing over the right hand is clean, dry, and intact without any active drainage Dressing over the right lower extremity is clean, dry, and intact without any active drainage Patient has good active range of motion of the fingers and wrist of the right hand Patient is able to perform dorsiflexion and plantarflexion on the right lower extremity without difficulty Neurovascular intact right upper extremity Neurovascular intact right lower extremity Patient is able to perform some active range of motion of the right ankle Patient able to perform active range of motion right upper extremity without difficulty Pertinent studies: X-rays of the right tibia and fibula taken on 12/18/2019: No evidence of fracture right lower extremity; clips from previous surgical intervention; no evidence of fracture dislocation of the right ankle X-rays of the right-hand taken on 12/18/2019: No evidence of fracture the right hand so an osteoarthritic changes of the base of the right thumb some soft tissue swelling Assessment: Status post dog bite to the right hand and right calf Puncture wounds at the right thenar and right index finger Large wound of the right mid lateral calf of the right lower extremity History of atrial fibrillation Diabetes mellitus History of coronary bypass Currently on anticoagulation Shortness of breath and difficulty of breathing Plan: 1. Dressings over the right upper extremity right lower extremity are clean, dry, intact with no active drainage. Patient has been seen and examined by Denisha Murphy in wound care. She is planning for dressing changes on Friday, Friday, and Fridays. Patient will continue with wound care as set forth by wound care. We would plan to continue conservative treatment with wound care. We are not currently planning for any emergent surgical intervention of his right lower extremity. He may weight-bear to tolerance on the right lower extremity. We are not currently planned for surgical intervention is right-hand or right lower extremity. 2. We'll continue with IV antibiotics with Unasyn as prescribed by Dr. Hagan; patient will be given a prescription for Augmentin 825 mg/125 mg 1 tablet every 12 hours for 7 days, dispensed #14. Medicine was sent to his pharmacy. 3. Continue pain control with IV Dilaudid. We will also add Ultram 50 mg 1-2 tabs every 6 hours as needed for pain. 4. Patient will continue be seen and examined by Dr. Hagan and medicine for management of his other medical diagnoses including shortness of breath and difficulty breathing; patient has been admitted to inpatient status; admit status is being transferred from orthopedics to medicine 5. We discussed we will also have case management plan to set up wound care in the outpatient setting location closer to his home which is currently being done; home care is also being set up for the patient 6. From an orthopedic standpoint, patient is clear for discharge. He is not planning to follow-up at our office in the outpatient setting. He is planning for an appointment to be set for him to follow-up at [facility] for further evaluation as this is closer to his residence
--- NOTE | 2019-12-21 14:08 | P.PN ---
Subjective 84-year-old male was admitted for Dr. bhat in the right leg. Patient is presently on Unasyn. Patient was receiving IV fluids and does have pulmonary edema because of which IV fluids were discontinued and I'll order an echocardiogram patient on 40 mg IV twice a day of Lasix. Patient pulmonary edema is probably secondary to IV fluids. Patient is requiring 3 L of oxygen. Constitutional: Denied any fatigue denied any fever. Cardio vascular: denied any chest pain, palpitations Gastrointestinal denied any nausea vomiting Pulmonary: Denied any shortness of breath cough Neurologic denied any new focal deficits All inpatient medications were reviewed and appropriate changes in these medications as dictated in the interval history and assessment and plan. Objective - Vital Signs Vital signs: Vital Signs Temp 98.0 F 12/21/19 07:32 Pulse 68 12/21/19 10:55 Resp 20 12/21/19 07:32 BP 160/64 12/21/19 07:32 Pulse Ox 93 L 12/21/19 03:25 Intake & Output 12/20/19 12/21/19 12/21/19 18:59 06:59 18:59 Intake Total 340 240 250 Output Total 200 400 200 Balance 140 -160 50 Intake: Oral 240 240 250 Other 100 Output: Urine 200 400 200 Other: Voiding Method Toilet Toilet # Voids 1 5 1 # Bowel Movements 1 1 - Exam PHYSICAL EXAMINATION: GENERAL: The patient is alert and oriented x3, not in any acute distress. Well developed, well nourished. HEENT: Pupils are round and equally reacting to light. EOMI. No scleral icterus. No conjunctival pallor. Normocephalic, atraumatic. No pharyngeal erythema. No thyromegaly. CARDIOVASCULAR: S1 and S2 present. No murmurs, rubs, or gallops. PULMONARY: Mild basilar crackles and mild expiratory wheezing ABDOMEN: Soft, nontender, nondistended, normoactive bowel sounds. No palpable organomegaly. MUSCULOSKELETAL: No joint swelling or deformity. EXTREMITIES: Deferred to orthopedic surgery NEUROLOGICAL: Gross neurological examination did not reveal any focal deficits. SKIN: Dog bite as mentioned above - Labs CBC & Chem 7: 12/21/19 05:41 12/21/19 05:41 Labs: Abnormal Lab Results - Last 24 Hours (Table) 12/20/19 12/21/19 12/21/19 Range/Units 20:25 05:41 05:41 RBC 3.82 L (4.30-5.90) m/uL Hgb 10.4 L (13.0-17.5) gm/dL Hct 34.4 L (39.0-53.0) % MCHC 30.3 L (31.0-37.0) g/dL Lymphocytes # 0.9 L (1.0-4.8) k/uL INR (<1.2) Glucose 111 H (74-99) mg/dL POC Glucose (mg/dL) 146 H (75-99) mg/dL 12/21/19 12/21/19 12/21/19 Range/Units 05:41 06:40 11:34 RBC (4.30-5.90) m/uL Hgb (13.0-17.5) gm/dL Hct (39.0-53.0) % MCHC (31.0-37.0) g/dL Lymphocytes # (1.0-4.8) k/uL INR 1.2 H (<1.2) Glucose (74-99) mg/dL POC Glucose (mg/dL) 109 H 122 H (75-99) mg/dL Microbiology - Last 24 Hours (Table) 12/18/19 19:10 Blood Culture - Preliminary Blood No Growth after 48 hours Assessment and Plan Plan: -Acute hypoxic respiratory failure: Most probably separate pulmonary edema from IV fluids, will offer echocardiogram to assess for cardiac function and heart failure. Patient does have mild COPD exacerbation as well patient is oriented and in his stress initial frequency to be continued patient was never diagnosed with COPD have smoking history -Possible COPD with mild acute exenteration x-ray and-diabetes mellitus -Coronary artery disease with AL in the past with CABG in the past -Dogbite: Being managed by infectious disease and automatic surgery -Obesity -chronic A. fib presently rate controlled, patient is on anti-correlation which will be continued
[2019-12-21 16:34] LABS: Glucose,Whole Blood 161 mg/dL (75-99)
[2019-12-21] MEDS: RIVAROXABAN 20 MG TAB PO SCH (17:16)
[2019-12-21 20:13] LABS: Glucose,Whole Blood 117 mg/dL (75-99)
[2019-12-21] MEDS: ATORVASTATIN 20 MG TAB PO SCH (21:13)
[2019-12-22 06:05] LABS: Basophils % (A) 0 %; Eosinophils # (A) 0.2 k/uL (0-0.7); Eosinophils % (A) 2 %; HCT 33.7 % (39.0-53.0); HGB 10.3 gm/dL (13.0-17.5); Hypochromasia Moderate; Lymphocytes # (A) 0.8 k/uL (1.0-4.8); Lymphocytes % (A) 11 %; MCH 27.2 pg (25.0-35.0); MCHC 30.5 g/dL (31.0-37.0); MCV 89.2 fL (80.0-100.0); Mean Platelet Volume 8.7; Monocytes # (A) 0.5 k/uL (0-1.0); Monocytes % (A) 6 %; Neutrophils # (A) 6.3 k/uL (1.3-7.7); Neutrophils % (A) 79 %; Platelet Count 205 k/uL (150-450); RBC 3.78 m/uL (4.30-5.90)
[2019-12-22 06:19] LABS: African American GFR (CKD) >90 (>60 ml/min/1.73 sqM); Anion Gap 5 mmol/L; Blood Urea Nitrogen 14 mg/dL (9-20); Calcium 8.9 mg/dL (8.4-10.2); Carbon Dioxide 32 mmol/L (22-30); Chloride 100 mmol/L (98-107); Glucose 51 mg/dL (74-99); Non-African American GFR(CKD) 86 (>60 ml/min/1.73 sqM); Sodium 137 mmol/L (137-145)
[2019-12-22 06:41] LABS: Glucose,Whole Blood 61 mg/dL (75-99)
[2019-12-22] MEDS ORDERED: DEXTROSE 50% SYRINGE 50 ML IVP STA (06:54)
[2019-12-22 06:59] LABS: Glucose,Whole Blood 60 mg/dL (75-99)
[2019-12-22 07:16] LABS: Glucose,Whole Blood 123 mg/dL (75-99)
[2019-12-22] MEDS: IPRATROPIUM-ALBUTEROL 3 ML NEB INHALATION SCH ×3 (07:22→15:02)
[2019-12-22] MEDS: SYMBICORT 160-4.5 MCG INHALER INHALATION SCH (07:22)
[2019-12-22 08:23] LABS: Glucose,Whole Blood 124 mg/dL (75-99)
[2019-12-22] MEDS: INSULIN ASPART (NovoLOG) 100 UNIT/ML VIAL SQ SCH ×2 (08:51→12:07)
[2019-12-22] MEDS: INSULIN DETEMIR (LEVEMIR) 100 UNIT/ML SYR SQ SCH (09:05)
[2019-12-22] MEDS: metFORMIN 500 MG TAB PO SCH (09:05)
[2019-12-22] MEDS: traMADol 50 MG TAB PO SCH ×2 (09:29→12:08)
[2019-12-22] MEDS: PANTOPRAZOLE 40 MG TABLET PO SCH (09:30)
[2019-12-22] MEDS: AMPICILLIN-SULBACTAM 3 GM in SODIUM CHLORIDE 0.9% 100 ML IVPB SCH (09:31)
[2019-12-22] MEDS: FUROSEMIDE 10 MG/ML 4 ML VIAL IV SCH (09:31)
[2019-12-22] MEDS: atenoloL 25 MG TAB PO SCH (09:31)
[2019-12-22 10:34] VITALS: RESP 16
[2019-12-22 11:58] LABS: Glucose,Whole Blood 111 mg/dL (75-99)
--- NOTE | 2019-12-22 12:56 | ECHOF ---
Referral Reason:CHF MEASUREMENTS -------- HEIGHT: 177.8 cm WEIGHT: 109.8 kg BP: 123/60 RVIDd: 4.4 cm (< 3.3) IVSd: 1.6 cm (0.6 - 1.1) LVIDd: 3.6 cm (3.9 - 5.3) LVPWd: 1.4 cm (0.6 - 1.1) IVSs: 2.0 cm LVIDs: 2.3 cm LVPWs: 1.6 cm LAESV Index (A-L): 64.77 ml/m Ao Diam: 3.6 cm (2.0 - 3.7) AV Cusp: 2.4 cm (1.5 - 2.6) MV EXCURSION: 24.989 mm (> 18.000) MV EF SLOPE: 118 mm/s (70 - 150) EPSS: 0.8 cm RAP: 5.00 mmHg RVSP: 70.64 mmHg FINDINGS -------- This was a technically adequate study. The left ventricular size is normal. There is moderate concentric left ventricular hypertrophy. O verall left ventricular systolic function is low-normal with, an EF between 50 - 55 %. Both the tana n atrial pressure as well as the LV end diastolic pressure is elevated {E/E'}. Septal wall motion i s delayed and consistent with prior cardiac surgery. The right ventricle is severely enlarged. LA is severely dilated >40 ml/m2 The right atrium is moderately enlarged. Interatrial and interventricular septum intact. There is mild aortic valve sclerosis. There is no evidence of aortic regurgitation. There is no e vidence of aortic stenosis. Moderate mitral regurgitation is present. Moderate to severe tricuspid regurgitation present. There is severe pulmonary hypertension. The r ight ventricular systolic pressure, as measured by Doppler, is 70.64mmHg. There is no pulmonic regurgitation present. The aortic root size is normal. There is no pericardial effusion. CONCLUSIONS -------- 1. The left ventricular size is normal. 2. There is moderate concentric left ventricular hypertrophy. 3. Overall left ventricular systolic function is low-normal with, an EF between 50 - 55 %. 4. Both the mean atrial pressure as well as the LV end diastolic pressure is elevated {E/E'}. 5. The right ventricle is severely enlarged. 6. LA is severely dilated >40 ml/m2 7. The right atrium is moderately enlarged. 8. There is mild aortic valve sclerosis. 9. Moderate mitral regurgitation is present. 10. Moderate to severe tricuspid regurgitation present. 11. There is severe pulmonary hypertension. 12. The right ventricular systolic pressure, as measured by Doppler, is 70.64mmHg. BANK NOTE DESIGNER: Rhianna Quinones RDCS
--- NOTE | 2019-12-22 13:07 | P.PN ---
Subjective 84-year-old male was admitted for Dr. bhat in the right leg. Patient is presently on Unasyn. Patient was receiving IV fluids and does have pulmonary edema because of which IV fluids were discontinued and I'll order an echocardiogram patient on 40 mg IV twice a day of Lasix. Patient pulmonary edema is probably secondary to IV fluids. Patient is requiring 3 L of oxygen. 12/22/2019 Patient is a clinically euvolemic patient does take Fortamet grams of Lasix at home Friday at 97% on 2 L of thousand although desaturates the toxin. Patient will be discharged in arms and patient will be discharged on inhaled steroids and the albuterol, pO2 came patient has a follow-up with his solar energy advisor and patient will follow with his solar energy advisor. Echo showed normal ejection fraction although does have diastolic dysfunction. does have moderate to severe tricuspid regurgitation and severe pulmonary hypertension as well. Constitutional: Denied any fatigue denied any fever. Cardio vascular: denied any chest pain, palpitations Gastrointestinal denied any nausea vomiting Pulmonary: Denied any shortness of breath cough Neurologic denied any new focal deficits All inpatient medications were reviewed and appropriate changes in these medic ations as dictated in the interval history and assessment and plan. Objective - Vital Signs Vital signs: Vital Signs Temp 97.4 F L 12/22/19 08:31 Pulse 88 12/22/19 09:00 Resp 16 12/22/19 09:00 BP 143/64 12/22/19 08:31 Pulse Ox 85 L 12/22/19 09:36 Intake & Output 12/21/19 12/22/19 12/22/19 18:59 06:59 18:59 Intake Total 250 240 Output Total 400 400 Balance -150 -160 Intake: Oral 250 240 Output: Urine 400 400 Other: Voiding Method Toilet Toilet Toilet # Voids 1 1 1 # Bowel Movements 2 2 - Exam PHYSICAL EXAMINATION: GENERAL: The patient is alert and oriented x3, not in any acute distress. Well developed, well nourished. HEENT: Pupils are round and equally reacting to light. EOMI. No scleral icterus. No conjunctival pallor. Normocephalic, atraumatic. No pharyngeal erythema. No thyromegaly. CARDIOVASCULAR: S1 and S2 present. No murmurs, rubs, or gallops. PULMONARY: Mild basilar crackles and mild expiratory wheezing ABDOMEN: Soft, nontender, nondistended, normoactive bowel sounds. No palpable organomegaly. MUSCULOSKELETAL: No joint swelling or deformity. EXTREMITIES: Deferred to orthopedic surgery NEUROLOGICAL: Gross neurological examination did not reveal any focal deficits. SKIN: Dog bite as mentioned above - Labs CBC & Chem 7: 12/22/19 05:28 12/22/19 05:28 Labs: Abnormal Lab Results - Last 24 Hours (Table) 12/21/19 12/21/19 12/22/19 Range/Units 16:31 20:12 05:28 RBC 3.78 L (4.30-5.90) m/uL Hgb 10.3 L (13.0-17.5) gm/dL Hct 33.7 L (39.0-53.0) % MCHC 30.5 L (31.0-37.0) g/dL Lymphocytes # 0.8 L (1.0-4.8) k/uL Carbon Dioxide (22-30) mmol/L Glucose (74-99) mg/dL POC Glucose (mg/dL) 161 H 117 H (75-99) mg/dL 12/22/19 12/22/19 12/22/19 Range/Units 05:28 06:39 06:53 RBC (4.30-5.90) m/uL Hgb (13.0-17.5) gm/dL Hct (39.0-53.0) % MCHC (31.0-37.0) g/dL Lymphocytes # (1.0-4.8) k/uL Carbon Dioxide 32 H (22-30) mmol/L Glucose 51 L (74-99) mg/dL POC Glucose (mg/dL) 61 L 60 L (75-99) mg/dL 12/22/19 12/22/19 12/22/19 Range/Units 07:15 08:21 11:57 RBC (4.30-5.90) m/uL Hgb (13.0-17.5) gm/dL Hct (39.0-53.0) % MCHC (31.0-37.0) g/dL Lymphocytes # (1.0-4.8) k/uL Carbon Dioxide (22-30) mmol/L Glucose (74-99) mg/dL POC Glucose (mg/dL) 123 H 124 H 111 H (75-99) mg/dL Microbiology - Last 24 Hours (Table) 12/18/19 19:10 Blood Culture - Preliminary Blood No Growth after 72 hours Assessment and Plan Plan: -Acute hypoxic respiratory failure: Most probably separate pulmonary edema from IV fluids, will offer echocardiogram to assess for cardiac function and heart failure. Patient appears to have severe pulmonary hypertension on with the chronic diastolic dysfunction patient had an acute exacerbation, patient had moderate mitral regurgitation as well as severe tricuspid regurgitation. Patient had an RVSP of 70.54 patient can be discharged from my perspective although patient is requiring home oxygen possibly because of his COPD along with pulmonary hypertension and patient will follow-up with the his solar energy advisor and PCP as an outpatient -Possible COPD with mild acute exenteration , patient is requiring home O2 is not requiring systemic steroids at this time. -[facility]onary artery disease with [facility] in the past with [facility] in the past -Dogbite: Being managed by infectious disease and orthopedic surgery. -Obesity -chronic A. fib presently rate controlled, patient is on anti-coagulation which will be continued
--- NOTE | 2019-12-22 14:07 | P.DS ---
Providers Date of admission: 12/21/19 06:28 Attending physician: Addie Gordon Consults: 12/19/19 11:03 Consult Physician Urgent Consulting Provider: Deep Hagan Consult Reason/Comments: medical management Do you want consulting provider notified?: Yes Primary care physician: Physician Nonstaff Hospital Course: The patient presented on the day of admission as per their history and physical. He had been bitten by the family dog and had a bite at his right hand and his right calf. He had some tissue loss at his right calf. He did not seem to have any bony involvement or neurologic change. He has been on IV antibiotics and we've been following from a standpoint and wound management. Wound care has been following him as well. Medicine has been seeing him as he was hypoxic and was having hypoxic distress yesterday. Apparently patient is making good progress in terms of his breathing status. He has now been cleared by medicine for discharge. Physical Exam The bite site at the right hand is clean dry and intact. There is no erythema no drainage. There is no purulence no evidence of infection. There is no significant swelling arms are soft at the right calf the wound appears to be healing appropriately. There is some superficial skin loss and deeper tissue loss in the center but does not appear to grossly infected. Local wound care is being managed per wound care. He has sustained dorsal flexion plantar flexion. Compartments are soft. Abdomen soft and nontender. Chest has good excursion with deep inspiration and expiration. The patient has active and passive range of motion intact at the upper and lower extremities. There is no acute change in neurologic status. Hospital Course Multiple dog bites with some soft tissue loss at the right calf Dog bite at the right hand without evidence of infection Hypoxia resolving The patient has been making progress in terms of his dog bite to his hand and his calf. He has been doing local wound care is appropriate for him. He is scheduled continue with local care particular at his right calf limited as well as his arthritis as outpatient. He should continue his antibiotics as prescribed by medicine. They have completed the prophylactic antibiotics without any signs or symptoms of infection. The patient has been able to advance their diet, and is tolerating diet adequately. The pain was initially controlled with IV medications and is now controlled appropriately with oral medications. The patient has been able to increase their mobilization. The patient had issues with hypoxia and has been managed by medicine. Apparently he is now cleared from medicine standpoint in terms of his breathing. The patient would like to continue follow up near his home toward [place]. We offered him follow up with our service. Ayush Powell but he prefers to be managed closure to his home. He'll arrange for continued [place] home care wound care and follow up with his primary care physician. We offered our service to him and he can be reached at [phone] [facility] for continued care as needed for his wounds. The patient has progressed appropriately. I think they are in good stable condition for discharge today as per medicine. They will be sent home with appropriate prescriptions. I answered their questions to the best of my ability in a language that they can understand and they are agreeable with the plan. They will follow up as directed With wound care and his own physician. Patient Condition at Discharge: Fair Plan - Discharge Summary Discharge Rx Participant: No New Discharge Prescriptions: New Amoxicillin/Potassium Clav [Augmentin 875-125 Tablet] 1 tab PO Q12HR 7 Days #14 tab Budesonide-Formot 160-4.5 Mcg [Symbicort 160-4.5 Mcg Inhaler] 2 puff INHALATION RT-BID #1 inhaler Albuterol Inhaler [Ventolin Hfa Inhaler] 2 puff INHALATION RT-QID PRN #1 inhaler PRN Reason: Shortness Of Breath Or Wheezing Continue Simvastatin 40 mg PO DAILY metFORMIN HCL [Glucophage] 500 mg PO BID atenoloL [Atenolol] 25 mg PO DAILY Omeprazole 20 mg PO DAILY Furosemide [Lasix] 40 mg PO DAILY Rivaroxaban [Xarelto] 20 mg PO W/SUPPER Tiotropium Br/Olodaterol HCl [Stiolto Respimat Inhal [place]] 2 spray INHALATION RT-DAILY PRN PRN Reason: Shortness Of Breath Changed Insulin Detemir (Levemir) [Levemir] 30 unit SQ DAILY #0 Insulin Detemir (Levemir) [Levemir] 35 unit SQ HS #0 Insulin Aspart [NovoLOG Flexpen] 8 units SQ TID #0 Discharge Medication List Furosemide [Lasix] 40 mg PO DAILY 12/18/19 [History] Omeprazole 20 mg PO DAILY 12/18/19 [History] Rivaroxaban [Xarelto] 20 mg PO W/SUPPER 09/05/20 [History] Simvastatin 40 mg PO DAILY 12/18/19 [History] Tiotropium Br/Olodaterol HCl [Stiolto Respimat Inhal [place]] 2 spray INHALATION RT-DAILY PRN 12/18/19 [History] atenoloL [Atenolol] 25 mg PO DAILY 12/18/19 [History] metFORMIN HCL [Glucophage] 500 mg PO BID 12/18/19 [History] Amoxicillin/Potassium Clav [Augmentin 875-125 Tablet] 1 tab PO Q12HR 7 Days #14 tab 12/21/19 [Rx] Albuterol Inhaler [Ventolin Hfa Inhaler] 2 puff INHALATION RT-QID PRN #1 inhaler 12/22/19 [Rx] Budesonide-Formot 160-4.5 Mcg [Symbicort 160-4.5 Mcg Inhaler] 2 puff INHALATION RT-BID #1 inhaler 12/22/19 [Rx] Insulin Aspart [NovoLOG Flexpen] 8 units SQ TID #0 12/22/19 [Rx] Insulin Detemir (Levemir) [Levemir] 30 unit SQ DAILY #0 12/22/19 [Rx] Insulin Detemir (Levemir) [Levemir] 35 unit SQ HS #0 12/22/19 [Rx] Follow up Appointment(s)/Referral(s): Nonstaff,Physician [Primary Care Provider] - 1-2 days (Dr. Karan Addison ) Wound Healing,Center [NON-STAFF] - As Needed Activity/Diet/Wound Care/Special Instructions: [facility] can be contacted at [phone] if needed for an appointment. Their address is [address] [place] [address]. [address] [place] [address]. The home care agency assigned is [facility] and they can be reached at [phone]. Ask to speak with intake if needed. [facility] can be reached at [phone]. Pt is offered follow up with [facility], . he states that he prefers to follow up with his own physician near where he lives.
[2019-12-22 14:57] VITALS: BP 139/65; TEMP 97.5
[2019-12-22 15:11] VITALS: PULSE 74
--- NOTE | 2019-12-26 12:20 | CDI ---
Documentation Clarification Form Date: 12/26/19 From: Tiff Gaines CCS Phone: If you have a question about this query, please contact Cindy Dang, Spray Maker at [phone] between 8am and 5pm. Admit Date: 12/21/19 Discharge Date:12/22/19 Patient Name: Stas Garcia Visit Number: [id number] ATTENTION: The Clinical Documentation Specialists (CDI) and [facility] Coding Staff appreciate your assistance in clarifying documentation. Please respond to the clarification below the line at the bottom and electronically sign. The CDI & [facility] Coding staff will review the response and follow-up if needed. Please note: Queries are made part of the Legal Health Record. If you have any questions, please contact the author of this message via ITS. Dear Dr. Gordon, CHF is documented in the Consult 12/19. PN 12/21 documents: Pulmonary hypertension on with the chronic diastolic dysfunction patient had an acute exacerbation History/Risk Factors: CAD, PAH, DM, Valve disease, Diastolic dysfunction Clinical Indicators: Acute respiratory failure, Pulmonary edema VS/Pulse OX: BP 160/64, RR 20, OR 68, O2 Sat 92 Echocardiogram Results: The left ventricular size is normal.There is moderate concentric left ventricular hypertrophy.Overall left ventricular systolic function is low-normal with, an EF between 50 - 55 % Chest X Ray: Correlate for CHF with mild interstitial pulmonary edema.Suspect small right effusion. Treatment: Lasix 40 mg IV Q12HR In your professional opinion, can you please clarify the acuity of diastolic CHF if known? Diastolic Heart Failure: Acute Chronic Acute on Chronic Acute Pulmonary Edema- Heart Failure ruled out Unable to Determine Other, please specify I am unable to determine if this is acute cardiopulmonary issue, I would defer this determination to the medicine or cardiology service. MTDD
--- NOTE | 2019-12-28 09:19 | CDI ---
Documentation Clarification Form Date: 12/28/19 From: Tiff Gaines CCS Phone: If you have a question about this query, please contact Cindy Dang, Wagon Driver Salesperson at [phone] between 8am and 5pm. Admit Date: 12/21/19 Discharge Date:12/22/19 Patient Name: Stas Garcia Visit Number: [id number] ATTENTION: The Clinical Documentation Specialists (CDI) and [facility] Coding Staff appreciate your assistance in clarifying documentation. Please respond to the clarification below the line at the bottom and electronically sign. The CDI & [facility] Coding staff will review the response and follow-up if needed. Please note: Queries are made part of the Legal Health Record. If you have any questions, please contact the author of this message via ITS. Dear Dr. Gandhi, CHF is documented in the Consult 12/19. PN 12/21 documents: Pulmonary hypertension on with the chronic diastolic dysfunction patient had an acute exacerbation History/Risk Factors: CAD, PAH, DM, Valve disease, Diastolic dysfunction Clinical Indicators: Acute respiratory failure, Pulmonary edema VS/Pulse OX: BP 160/64, RR 20, MA 68, O2 Sat 92 Echocardiogram Results: The left ventricular size is normal.There is moderate concentric left ventricular hypertrophy.Overall left ventricular systolic function is low-normal with, an EF between 50 - 55 % Chest X Ray: Correlate for CHF with mild interstitial pulmonary edema.Suspect small right effusion. Treatment: Lasix 40 mg IV Q12HR In your professional opinion, can you please clarify the acuity of diastolic CHF if known? Diastolic Heart Failure: Acute Chronic Acute on Chronic Acute Pulmonary Edema- Heart Failure ruled out Unable to Determine Other, please specify Appropriate documentation was already done her shortness documentation will be updated MTDD
== END 2019-12-22 15:31 | disposition home health service (06) | DRG 291 ==
LOC: EC 18:46 → 1SOBS 20:24 → OBSVTOIN 12-21 06:28
PROVIDERS: ADMIT Orthopaedic Surgery Orthopaedic Surgery of the Spine; ATTEND Orthopaedic Surgery Orthopaedic Surgery of the Spine
PROC: 0HQKXZZ Repair Right Lower Leg Skin, External Approach (ICD-10-PCS; principal; 2019-12-18)
DX: I50.33 Acute on chronic diastolic (congestive) heart failure (principal); J96.01 Acute respiratory failure with hypoxia; J44.1 Chronic obstructive pulmonary disease with (acute) exacerbation; I48.20 Chronic atrial fibrillation, unspecified; I27.22 Pulmonary hypertension due to left heart disease; S81.851A Open bite, right lower leg, initial encounter; E11.9 Type 2 diabetes mellitus without complications; Z79.4 Long term (current) use of insulin; S61.051A Open bite of right thumb without damage to nail, initial encounter; S61.250A Open bite of right index finger without damage to nail, initial encounter; M19.041 Primary osteoarthritis, right hand; H91.90 Unspecified hearing loss, unspecified ear; H53.9 Unspecified visual disturbance; E66.9 Obesity, unspecified; I45.10 Unspecified right bundle-branch block; I25.10 Atherosclerotic heart disease of native coronary artery without angina pectoris; I08.1 Rheumatic disorders of both mitral and tricuspid valves; W54.0XXA Bitten by dog, initial encounter; I25.2 Old myocardial infarction; Z68.34 Body mass index [BMI] 34.0-34.9, adult; Z79.01 Long term (current) use of anticoagulants; Z79.899 Other long term (current) drug therapy; Z95.1 Presence of aortocoronary bypass graft; Z90.49 Acquired absence of other specified parts of digestive tract; Z87.891 Personal history of nicotine dependence; Z82.3 Family history of stroke; Z82.5 Family history of asthma and other chronic lower respiratory diseases; Z80.9 Family history of malignant neoplasm, unspecified; Z82.49 Family history of ischemic heart disease and other diseases of the circulatory system
CPT/HCPCS: 12002; 36415; 71045; 80048; 80053; 82550; 85025; 85027; 85610; 87040; 93005; 93306; 94640; 96365; 96367; 99285